=== PATIENT | female | born 1985 | race Caucasian/White ===

== ENCOUNTER 2017-03-07 06:20 | Inpatient (IN) | payer OTHER ==
[~2017-03-07] VITALS: Ht 157.5 cm; Wt 81.6 kg
[~2017-03-07 06:20] MED LIST: DOCUSATE SODIU100 MG PO; IBUPROFEN800 M1 PO; IBUPROFEN800 MG PO; PERCOCET 325 MG1 TA2 PO; PERCOCET 5-3251 EACH PO; PROCTOFOAM-HC 11 FOA RC; ZOFRAN ODT4 MG SL
[2017-03-07 08:13] LABS: ABSOLUTE BASOPHIL COUNT 0 /CUMM (0.0-0.2); ABSOLUTE EOSINOPHIL COUNT 0.1 /CUMM (0.0-0.7); ABSOLUTE GRANULOCYTE CT 6.5 /CUMM (1.4-6.5); ABSOLUTE LYMPH COUNT 2.5 /CUMM (1.2-3.4); ABSOLUTE MONOCYTE COUNT 0.5 /CUMM (0.10-0.60); BASOPHIL % 0.4 % (0.0-2.0); EOSINOPHIL % 0.7 % (0-5); GRANULOCYTE % 67.5 % (42.2-75.2); HEMATOCRIT 34.5 % (37-47); MEAN CORPUSCULAR HGB CONC 32.9 G/DL (33.0-37.0); MEAN CORPUSCULAR VOLUME 82.1 FL (81.0-99.0); MEAN PLATELET VOLUME 8.9 FL (7.4-10.4); PLATELET COUNT 214 /CUMM (130-400); RBC DISTRIBUTION WIDTH 16.4 % (11.5-14.5); WHITE BLOOD CELL COUNT 9.6 /CUMM (4.8-10.8)
--- NOTE | 2017-03-07 09:31 | History & Physical ---
General Information and HPI MD Statement: I have seen and personally examined ASTRID CHARLES and documented this H&P. The patient is a 31 year old female at [] weeks and [] days gestation who presented with a chief complaint o FPREVIOUS C/S. 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 History : 3 Para: 2 Last Menstrual Period: Unknown 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 History: 7pound 2 ounce vaginal delivery at 42 weeks Medical History Neurological: NONE EENT: NONE Cardiovascular: NONE Respiratory: NONE Gastrointestinal: NONE Hepatic: NONE Renal: NONE Musculoskeletal: NONE Psychiatric: NONE Endocrine: NONE Blood Disorders: NONE Cancer(s): NONE 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 No Contractions: NONE Patient for Induction? No Labs Blood Type & Rh: O + Antibody Screen: NEG Hct/Hgb & Platelets #1: Hct/Hgb & Platelets #2: Rubella: IMMUNE VDRL #1: NR VDRL #2: NR HbsAg: NEG HIV #1: NEG HIV #2 NEG 1 Hr P 3 Hr PG: NL Group B Strep: POSITIVE Initial Ultrasound: NL Anatomy Ultrasound: NL Genetic Testing: NL Assessment/Plan As Ranked By This Provider Problem List: 1. Core Measures Venous Thromboembolism VTE Risk Factors / No Mechanical VTE Prophylaxis d/t N/A MechProphylax Ordered No VTE Pharm Prophylaxis d/t NA PharmProphylax ordered
--- NOTE | 2017-03-07 10:51 | Operative Report ---
Operative/Inv Procedure Report Surgery Date: 03/07/17 Name of Procedure: Repeat low flap transverse section via Pfannenstiel skin incision Pre-Operative Diagnosis: Term previous section Post-Operative Diagnosis: Same Estimated Blood Loss: 500 Surgeon/Pin Drafter: Bennett REDDY,Mariama Jordan and Blayne Leon M.D. Anesthesia: block Operative/Procedure Note Note: Siege note patient was taken to the operating room placed in supine position after adequate skin testing for spinal anesthesia and a timeout the abdomen was prepped and draped so fashion skin testing was performed once again found to be adequate I this point the skin was cut carried down to rectus fascia which was cut in curvilinear fashion I direction peritoneal cavity was entered high into the abdomen the parietal peritoneum was entered using Metzenbaums the bladder blade was replaced to protect the bladder in the lower uterine second uterus is nicked I extended bluntly entered with the back of the knife I this point the clear fluid was noted the was handed's cord was doubly clamped and cut and was handed to transmitter chief was waiting delivering to aid in resuscitation placenta was delivered manually noted to be intact was wiped clean with wet dry last insurance free of adherent membranes intravenous Pitocin as well as for intramyometrial Pitocin was used to aid in uterine contractility patient tolerated that well at this point all instruments removed from the abdomen after the uterus been reapproximated using 2 layers of 0 suture in running locking fashion at this point the uses turned to abdominal cavity irrigated close amounts warm sounds are clear peritoneum was reapproximated 0 fascia was reapproximated to continue sutures #1 skin was reapproximated using suture cell dressing was applied with Steri-Strips and Mastisol urine was clear at the end the case counts correct and mother transferred recovery room awake and alert the Rogers and baby friendly fashion Findings: Viable male infant three-vessel cord normal tubes and ovaries bilaterally weight 8 lbs. 4 oz. last year he placenta
[2017-03-07 23:31] VITALS: BP 106/60
[2017-03-08 10:15] LABS: ABSOLUTE BASOPHIL COUNT 0 /CUMM (0.0-0.2); ABSOLUTE EOSINOPHIL COUNT 0 /CUMM (0.0-0.7); ABSOLUTE GRANULOCYTE CT 8.4 /CUMM (1.4-6.5); ABSOLUTE LYMPH COUNT 3.1 /CUMM (1.2-3.4); ABSOLUTE MONOCYTE COUNT 0.6 /CUMM (0.10-0.60); BASOPHIL % 0.3 % (0.0-2.0); EOSINOPHIL % 0.3 % (0-5); HEMATOCRIT 30.3 % (37-47); MEAN CORPUSCULAR HGB 27.1 PG (27.0-31.0); MEAN CORPUSCULAR HGB CONC 32.8 G/DL (33.0-37.0); MEAN CORPUSCULAR VOLUME 82.9 FL (81.0-99.0); PLATELET COUNT 202 /CUMM (130-400); RBC DISTRIBUTION WIDTH 16.1 % (11.5-14.5); RED BLOOD CELL CT 3.66 /CUMM (4.20-5.40); WHITE BLOOD CELL COUNT 12.1 /CUMM (4.8-10.8)
--- NOTE | 2017-03-08 19:34 | PN- Post Delivery/GYN ---
Subjective Subjective: No complaints Objective Last 24 Hrs of Vital Signs/I&O Vital Signs Date Time Temp Pulse Resp B/P B/P Pulse O2 O2 Flow FiO2 Mean Ox Delivery Rate 03/07 2331 106/60 Physical Exam: Pale white female HEENT anicteric Fundus firm nontender incision on the right side possibly 3 cm with bleeding pressure dressing applied Extremities negative edema negative Homans assessment is Assessment/Plan Assessment/Plan Assessment status post repeat section wound on bleeding Plan check CB C on applied pressure place once bleeding has stopped Steri-Strips on corner of the incision
--- NOTE | 2017-03-14 10:49 | Surgical Discharge Summary ---
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 Mongolian Review of Systems: -13 point review of systems the stated in the [facility] Hospital Course Course Attending Physician: Mariama Guajardo MD Primary Care Physician: Patient Has No Primary Care Hospital Course: She was admitted for a repeat section she did well tolerating clear liquid diet first postoperative day second postoperative day patient was advanced to a regular diet she passed gas she was bonding well with her tolerated oral pain medication urinating freely without use of [place] and on the third postoperative day she was discharged home the following physical exam pale white female HEENT anicteric lungs clear heart S1 and S2 abdomen soft incision clean dry and intact extremities negative edema negative Homans Allergies: Coded Allergies: Sulfa (Sulfonamide Antibiotics) (Severe, HIVES 05/18/15) Disposition Summary Disposition Principal Diagnosis: Status post section Additional Diagnosis: Anemia Discharge Disposition: home or self care Discharge Instructions General Discharge Information Code Status: Full Code Patient's Diet: Regular Patient's Activity: Pelvic rest no heavy lifting or driving for 2 weeks Follow-Up Instructions/Appts: return visit in 1 week my office in 2 weeks Medications at Discharge Discharge Medications: Continue taking these medications: Docusate Sodium (Docusate Sodium) 100 MG SGL 100 Milligram ORAL TWICE DAILY as needed for STOOL SOFTENER Qty = 60 HYDROCORTISONE/PRAMOXINE (Proctofoam-Hc 1%-1% Foam) 1 FOA FOA 1 Applicator RECTAL TWICE DAILY as needed for HEMORRHOIDS Qty = 10 Oxycodone HCl/Acetaminophen (Percocet 5-325 MG Tablet) 1 EACH TABLET 1 Tablet ORAL EVERY 4 HOURS NEEDED as needed for PAIN SCALE 7-8 Qty = 30 Comments: Last Taken:06/15/15 Time:1240 Ibuprofen (Ibuprofen) 800 MG TABLET 800 Milligram ORAL EVERY SIX HOURS NEEDED as needed for PAIN SCALE 4-6 Qty = 60 Comments: Last Taken:06/15/15 Time:8978
== END 2017-03-10 11:45 | DRG 540 ==
LOC: GNO 06:20
PROVIDERS: Specialist
PROC: 10D00Z1 Extraction of Products of Conception, Low, Open Approach (ICD-10-PCS; principal; 2017-03-07)
DX: O34.211 Maternal care for low transverse scar from previous cesarean delivery (principal); N85.8 Other specified noninflammatory disorders of uterus; Z3A.40 40 weeks gestation of pregnancy; Z37.0 Single live birth
CPT/HCPCS: GNOS; 36415; 81001; 87086; 88307; J0690; J1200; J1650; J1885; J7120